=== PATIENT | female | born 1945 | race Caucasian/White ===

== ENCOUNTER 2018-09-13 06:10 | Day surgery (SDC) | payer OTHER ==
[~2018-09-13 06:10] MED LIST: ACTICAL SOFTGE1 EACH PO; COMPLETE OMEGA1 EACH PO; INTESTINEX680 M1 PO; JENTADUETO 2.51 EAC1 PO
[2018-09-13] MEDS ORDERED: ULTRACET PO (09:18)
[2018-09-13] MEDS ORDERED: KEFLEX500 MG PO (09:19)
== END 2018-09-13 11:00 | disposition home or self-care (01) ==
LOC: CIR.AMB 06:10
DX: R15.9 Full incontinence of feces (principal)
CPT/HCPCS: 64581; C1778

== ENCOUNTER → 2018-09-27 | Day surgery (SDC) | payer OTHER ==
[~2018-09-27] MED LIST changes: +KEFLEX500 MG PO; +ULTRACET PO
== END | disposition home or self-care (01) ==
LOC: ADM 09-25 12:30 → CIR.AMB 05:44
DX: R15.9 Full incontinence of feces (principal)
CPT/HCPCS: 64590; C1767

== ENCOUNTER 2019-10-10 06:04 | Day surgery (SDC) | payer OTHER ==
[~2019-10-10 06:04] MED LIST changes: +JANUMET 50-1,01 EACH PO
[2019-10-10] MEDS ORDERED: ULTRACET PO (09:05)
== END 2019-10-10 10:35 | disposition home or self-care (01) ==
LOC: CIR.AMB 06:04 → ADM 11:00 → CIR.AMB 11:00
PROVIDERS: ATTEND Surgery
DX: T85.111A Breakdown (mechanical) of implanted electronic neurostimulator of peripheral nerve electrode (lead), initial encounter (principal); T85.113A Breakdown (mechanical) of implanted electronic neurostimulator, generator, initial encounter

== ENCOUNTER 2020-07-27 20:07 | Emergency (ER) | payer OTHER ==
[~2020-07-27] VITALS: Ht 152.4 cm; Wt 50.8 kg
[2020-07-27] MEDS ORDERED: JANUVIA100 MG (20:17)
[2020-07-27] MEDS ORDERED: GLIMEPIRIDE4 MG (20:18)
== END 2020-07-27 22:08 | disposition home or self-care (01) ==
LOC: ER 20:07
DX: K62.89 Other specified diseases of anus and rectum (principal)